=== PATIENT | male | born 1990 | race African-American/Black ===

== ENCOUNTER 2018-05-11 08:13 | Day surgery (SDC) | payer OTHER ==
[2018-05-08 11:42] VITALS: BMI 23.6
[2018-05-11] MEDS ORDERED: PROPOFOL 20 ML ONE ×2 (09:45)
[2018-05-11] MEDS ORDERED: MIDAZOLAM HCL 2 MG/2 ML SINGLE DOSE VIAL ONE ×2 (09:45)
[2018-05-11] MEDS ORDERED: BUPIVACAINE HCL/PF 0.5% (5MG/ML) 10 ML VIAL ONE (09:55)
[2018-05-11] MEDS ORDERED: DEXAMETHASONE SOD PHOSPHATE 4 MG/1 ML VIAL ONE (10:01)
[2018-05-11] MEDS ORDERED: ceFAZolin SODIUM 1 GM VIAL ONE (10:01)
[2018-05-11] MEDS ORDERED: ceFAZolin SODIUM 1 GM VIAL IVPB ONE (10:02)
[2018-05-11] MEDS ORDERED: BUPIVACAINE HCL/PF (5 MG/ML) 30 ML VIAL IJ ONE (10:25)
[2018-05-11] MEDS ORDERED: LIDOCAINE HCL/PF 2% SDV 5ML VIAL ONE (10:30)
[2018-05-11] MEDS ORDERED: IBUPROFEN 800 MG/8 ML IJ IVPB PRN (10:51)
[2018-05-11] MEDS ORDERED: ONDANSETRON 4 MG/2 ML VIAL IVPUSH PRN (10:51)
[2018-05-11] MEDS ORDERED: oxyCODONE HCL 5 MG TABLET PO PRN (10:51)
[2018-05-11] MEDS ORDERED: LACTATED RINGERS SOLUTION 1,000 ML IV SCH (11:00)
--- NOTE | 2018-05-11 11:28 | OP ---
Operative Note - Note: Operative Date: 05/11/18 Pre-Operative Diagnosis: right hemiscrotal mass Operation: Excision of Right Hemiscrotal Neoplasm Post-Operative Diagnosis: Same as Pre-op Surgeon: Mikhail Riley Anesthesia: General
[2018-05-11 13:15] VITALS: PULSE 54
[2018-05-11 16:09] VITALS: BP 122/66; TEMP 97.5
--- NOTE | 2018-05-11 22:02 | OP ---
DATE OF OPERATION: 05/11/2018 PREOPERATIVE DIAGNOSIS: Mass of right hemiscrotum. POSTOPERATIVE DIAGNOSIS: Mass of right hemiscrotum. PROCEDURE: Excision of right hemiscrotal neoplasm. ATTENDING: Mikhail Coles MD ANESTHESIA: General. DESCRIPTION OF OPERATION: Patient was brought in the operating room. 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 This neoplasm has grown over the last few months. The patient is interested in having this mass excised. The patient signs an informed consent with the risk of requiring an orchiectomy. The patient was brought in the operating room, placed in supine position on the operating room table. The patient was given anesthesia and preoperative antibiotics. An incision over the right hemiscrotum is made. The scrotal contents are brought exteriorly. The right testis with the vas deferens is identified. The spermatic cord is from the anterior lateral mass in the right hemiscrotum. At this point, sharp and blunt dissection is utilized, and the base of the mass is found. Clamps are placed on the base, and the mass is excised and sent for pathologic evaluation. At this point, a suture ligature is placed at the base of the mass and tied without complications. Excellent hemostasis is achieved. A 2-layer scrotal closure is performed. No complications are noted. The disposition of the patient is to the recovery room. Shannon [id number]
== END 2018-05-11 13:10 | disposition home or self-care (01) ==
LOC: JASU-SURG 08:13
PROVIDERS: ATTEND Urology
PROC: 0VBF0ZZ Excision of Right Spermatic Cord, Open Approach (ICD-10-PCS; principal; 2018-05-11 09:00)
DX: D40.8 Neoplasm of uncertain behavior of other specified male genital organs (principal)
CPT/HCPCS: 94760

== ENCOUNTER 2020-08-29 20:29 | Emergency (ER) | payer OTHER ==
[2020-08-29 20:34] VITALS: BP 122/71; PULSE 88; TEMP 97.7; BMI 21.1
--- OUTSIDE RECORDS SUMMARY | 2020-08-29 20:52 | XMS ---
:1990 Author Organization [facility] Care Team Providers Name Role Phone Deisi Edmond MD, MPH Unavailable Unavailable Deisi Edmond MD, MPH Unavailable Unavailable Deisi Edmond MD, MPH Unavailable Unavailable Deisi Edmond MD, MPH Unavailable Unavailable Deisi Edmond MD, MPH Unavailable Unavailable Choi, Nina Unavailable Unavailable Choi, Nina Unavailable Unavailable Choi, Nina Unavailable Unavailable Choi, Nina Unavailable Unavailable Choi, Nina Unavailable Unavailable Choi, Nina Unavailable Unavailable Choi, Nina Unavailable Unavailable Choi, Nina Unavailable Unavailable Choi, Nina Unavailable Unavailable Choi, Nina Unavailable Unavailable Routen, Luis Fernando Unavailable Unavailable Routen, Luis Fernando Unavailable Unavailable Leona Talamantes MD Unavailable Unavailable Genesis Talamantes MD Unavailable Unavailable Genesis Talamantes MD Unavailable Unavailable Genesis Talamantes MD Unavailable Unavailable Genesis Talamantes MD Unavailable Unavailable Genesis Talamantes MD Unavailable Unavailable Genesis Talamantes MD Unavailable Unavailable Genesis Talamantes MD Unavailable Unavailable Genesis Talamantes MD Unavailable Unavailable Genesis Talamantes MD Unavailable Unavailable Genesis Talamantes MD Unavailable Unavailable Genesis Talamantes MD Unavailable Unavailable Genesis Talamantes MD Unavailable Unavailable Genesis Talamantes MD Unavailable Unavailable Genesis Talamantes MD Unavailable Unavailable Choi Unavailable Unavailable Choi Unavailable Unavailable Choi Unavailable Unavailable Choi Unavailable Unavailable Choi Unavailable Unavailable Choi Unavailable Unavailable Choi Unavailable Unavailable Choi Unavailable Unavailable Choi Unavailable Unavailable Choi Unavailable Unavailable Samuel Escobar MD, MD Unavailable [phone] Samuel Escobar MD, MD Unavailable [phone] [place] Unavailable Unavailable Ringstad Unavailable Unavailable Ringstad Unavailable Unavailable Ringstad Unavailable Unavailable Ringstad Unavailable Unavailable Ring[place] Unavailable Unavailable Ring[place] Unavailable Unavailable [place] Unavailable Unavailable Ring[place] Unavailable Unavailable [place] Unavailable Unavailable [place] Unavailable Unavailable Re-disclosure Warning The records that you are about to access may contain information from federally- assisted alcohol or drug abuse programs. If such information is present, then the following federally mandated warning applies: This information has been disclosed to you from records protected by federal confidentiality rules (42 CFR part 2). The federal rules prohibit you from making any further disclosure of this information unless further disclosure is expressly permitted by the written consent of the person to whom it pertains or as otherwise permitted by 42 CFR part 2. A general authorization for the release of medical or other information is NOT sufficient for this purpose. The Federal rules restrict any use of the information to criminally investigate or prosecute any alcohol or drug abuse patient.The records that you are about to access may contain highly sensitive health information, the redisclosure of which is protected by Article 27-F of the [facility] Public Health law. If you continue you may haveaccess to information: Regarding HIV / AIDS; Provided by facilities licensed or operated by the [facility] Office of Mental Health; or Provided by the [facility] Office for People With Developmental Disabilities. If such information is present, then the following [facility] mandated warning applies: This information has been disclosed to you from confidential records which are protected by state law. State law prohibits you from making any further disclosure of this information without the specific written consent of the person to whom it pertains, or as otherwise permitted by law. Any unauthorized further disclosure in violation of state law may result in a fine or mcc sentence or both. A general authorization for the release of medical or other information is NOT sufficient authorization for further disclosure. Family History Family Member Family Member Family Member Date of Description Data Source(s) Name Gender Status Status Unknown Male Diagnosis 11/14/2017 JESSICA Brunson 12:00:00 AM Altagraciajusto izaguirre EST [place]) Encounters Encounter Providers Location Date Indications Data Source(s ) Outpatient Attender: Nina Perdomo 04/27/2020 [facility] VelezAdmitter: 08:59:00 Medical Ce nter Nina AM EDT VelezReferrer: Nina Choi OutpatientWell Attender: [facility] 04/27/2020 NEXTG EN ([facility] Visit, Sindy [place] 08:59:00 Altagracia Est,18-39years Samuel AM EDT - Medical Shawn LEIJA 04/27/2020 [place]) 08:59:00 AM EDT Attender: [facility] 04/25/2020 NEXTGE N ([facility] Albin [facility] 03:42:00 Altagracia PM EDT - Medical 04/25/2020 [place]) 03:42:00 PM EDT Attender: [facility] 04/19/2020 NEXTGE N ([facility] 04:09:00 Altagracia PM EDT - Medical 04/19/2020 [place]) 04:09:00 PM EDT Attender: [facility] 04/14/2020 NEXTGEN ([facility] 10:33:00 Altagracia AM EDT - Medical 04/14/2020 [place]) 10:33:00 AM EDT Attender: [facility] 07/23/2019 NEXTGEN ([facility] 09:38:00 Altagraciajusto Guillen AM EDT - Medical 07/23/2019 Center) 09:38:00 AM EDT Outpatient Attender: [facility] 07/21/2019 [facility] VelezAdmitter: 09:30:00 Medical Ce nter Nina AM EDT VelezReferrer: Nina Choi OutpatientOFFICE/OUT Attender: [facility] 07/21/2019 N EXTGEN ([facility]ISIT[facility] Peterson ivory MD, MPH AM EDT - Medical 07/21/2019 Center) 09:30:00 AM EDT Medications Medication Brand Start Product Dose Route Administrative Pharmacy [facility] Indications Reaction Description Data Name Date Form Instructions Instructions Source(s) Ibuprofen ibupro .00 ORAL complet take 1 N EXTGEN 400 MG Oral fen 2019 {tbl} ed tablet by (S aint Tablet 400 mg 12:00: oral route Son[facility] ephs ibuprofen tablet 00 AM every 4 - 6 Medical 400 mg EDT hours as Center) tablet needed Wrist Brace arm [facility] brace 2019 ed left wrist ([facility] 12:00: daily for [facility] 00 wrist Medical EDT stability Center) Insurance Providers Payer name Policy type Policy ID Covered Covered democrat's Policy P kenny / Coverage democrat ID relationship to Manuel Inf ormation type manuel [employer] MEDICAID [id number] COMM [employer]AN HMO MEDICAID W [id number] 01 [id number] [facility] W [id number] HEALTHCARE Problems, Conditions, and Diagnoses Code Display Name Description Problem Type Effective Data Dates Source(s) Z71.89 Other specified OTHER SPECIFIED Diagnosis 04/27/2020 Dewayne t counseling COUNSELING 08:59:00 AM [facility] Z28.3 Underimmunization UNDERIMMUNIZATION Diagnosis 04/27/2020 status STATUS 08:59:00 AM [facility] Z28.21 Immunization not IMMUNIZATION NOT Diagnosis 04/27/2020 Sa int carried out because CARRIED OUT BECAUSE 08:59:0 0 AM [facility] of patient refusal OF PATIENT REFUSAL [facility] N43.3 Hydrocele, HYDROCELE, Diagnosis 04/27/2020 [facility] unspecified UNSPECIFIED 08:59:00 AM [facility] Z00.8 Encounter for other ENCOUNTER FOR OTHER Diagnosis 020 [facility] general examination GENERAL EXAMINATION 08:59:0 0 AM [facility] Z68.21 Body mass index (BMI) BODY MASS INDEX Diagnosis 9 [facility] 21.0-21.9, adult (BMI) 21.0-21.9, 09:30:00 AM [facility] ADULT [facility] M25.532 Pain in left wrist PAIN IN LEFT WRIST Diagnosis 9 [facility] 09:30:00 AM [facility] Surgeries/Procedures Procedure Description Date Indications Data Source(s) Well Visit, 04/27/2020 JESSICA ([facility] Est,18-39years 12:00:00 AM EDT - Medica l Center) 04/27/2020 12:00:00 AM EDT OFFICE/OUTPATIENT 07/21/2019 JESSICA ([facility] VISIT, EST 12:00:00 AM EDT - Medical Ce nter) 07/21/2019 12:00:00 AM EDT Social History Code Duration Value Status Description Data Source(s ) Caffeine Use 04/27/2020 coffee completed coffee NEXTGEN ([facility] nt Details 12:00:00 AM EDT [facility]) 04/27/2020 Never smoked completed Never smoked NEXTGEN (S aint 12:00:00 AM EDT tobacco tobacco [facility]) Smoking 04/27/2020 Unknown if completed Unknown if ever NEXTGEN ( [facility] 12:00:00 AM EDT ever smoked smoked [facility]) Vital Signs ID Date Data Source UNK Name Value Range Interpretation Code Description Data Source(s) Oxygen saturation 98 % 98 % NEXTGEN ([facility] in Arterial blood [facility] by Pulse oximetry [place]) Body mass index 22.00 kg/m2 22.00 kg/m2 NEXTGEN ([facility] (BMI) [Ratio] [facility]) Respiratory rate 20 /min 20 /min [facility] ([facility]) Body temperature 36.83 Gretta 36.83 Gretta [facility] ([facility]) Heart rate 64 /min 64 /min [facility] ([facility]) Diastolic blood 63 mm[Hg] 63 mm[Hg] [facility] ( [facility] pressure [facility]) Systolic blood 103 mm[Hg] 103 mm[Hg] [facility] (S aint pressure [facility]) Body weight 67.585 kg 67.585 kg [facility]) Body height 175.26 cm 175.26 cm [facility] ([facility]) Oxygen saturation 99 % 99 % NEXTGEN ([facility] in Arterial blood [facility] by Pulse oximetry Center) Body mass index 21.41 kg/m2 21.41 kg/m2 NEXTGEN ([facility] (BMI) [Ratio] [facility]) Respiratory rate 20 /min 20 /min [facility] ([facility]) Body temperature 36.33 Gretta 36.33 Gretta [facility] ([facility]) Heart rate 65 /min 65 /min [facility] ([facility]) Diastolic blood 69 mm[Hg] 69 mm[Hg] [facility] ( [facility]) Systolic blood 110 mm[Hg] 110 mm[facility]Hg] [facility]S [facility] pressure [facility]) Body weight 65.771 kg 65.771 kg [facility] ([facility]) Body height 175.26 cm 175.26 cm [facility] ([facility]) Patient Treatment Plan of Care Planned Activity Planned Date Details Description Data Source (s) Wrist Brace 07/21/2019 12:00:00 [facility] ([facility]) Ibuprofen 400 MG Oral 07/21/2019 12:00:00 [facility] ([facility])
--- NOTE | 2020-08-29 20:55 | PDOC ---
History of Present Illness - General Chief Complaint: Ear Problem Stated Complaint: RT EAR INFECTION Time Seen by Provider: 08/29/20 20:38 - History of Present Illness Initial Comments: 08/29/20 20:50 29-year-old male no comorbidities presents for right ear pain without systemic symptoms x4 days Past History - Medical History Allergies/Adverse Reactions: Allergies Allergy/AdvReac Type Severity Reaction Status Date / Time No Known Allergies Allergy Verified 08/29/20 20:31 Home Medications: Ambulatory Orders Ibuprofen [Motrin -] 600 mg PO PRN PRN 05/08/18 Ciprofloxacin HCl/Dexameth [Ciprodex Otic Suspension] 4 drop AD BID 5 Days #1 bottle 08/29/20 COPD: No - Psycho-Social/Smoking History Smoking Status: No Smoking History: Current every day smoker Have you smoked in the past 12 months: Yes Number of Cigarettes Smoked Daily: 0 Information on smoking cessation initiated: Yes - Substance Abuse Hx (Audit-C & DAST Scrn) How often the patient has a drink containing alcohol: Never Score: In Men: 4 or > Positive; In Women: 3 or > Positive: 0 Screen Result (Pos requires Nsg. Audit-10AR): Negative In the last yr the pt used illegal drug/Rx for NonMed reason: Yes Score: Yes response is considered Positive: 1 Screen Result (Positive result requires Nsg. DAST-10): Positive Review of Systems - Review of Systems Constitutional: No: Fever HEENTM: Yes: Ear Pain *Physical Exam - Vital Signs Last Vital Signs Temp Pulse Resp BP Pulse Ox 97.7 F 88 16 122/71 100 08/29/20 20:32 08/29/20 20:32 08/29/20 20:32 08/29/20 20:32 08/29/20 20:32 - Physical Exam General Appearance: Yes: Nourished, Appropriately Dressed. No: Apparent Distress HEENT: positive: Symmetrical, Other (Left ear canal and tympanic membrane are normal right ear canal is erythemic with What appears to be purulence. Tympanic membrane is normal) Neck: positive: Supple Respiratory/Chest: negative: Respiratory Distress Musculoskeletal: positive: Normal Inspection Extremity: positive: Normal Inspection Integumentary: positive: Normal Color Neurologic: positive: paintings conservator II-XII NML intact, Fully Oriented Medical Decision Making - Medical Decision Making 08/29/20 20:51 Ciprodex for otitis externa follow-up with ENT Tylenol Motrin for pain I have reviewed the pathophysiology with the patient. They are in agreement with the treatment plan all questions were answered to their satisfaction. Understanding for follow-up without fail was also conveyed to the patient. Again they are in agreement. Discharge - Discharge Information Problems reviewed: Yes Clinical Impression/Diagnosis: Otitis externa Condition: Stable Disposition: HOME - Admission No - Additional Discharge Information Prescriptions: Ciprofloxacin HCl/Dexameth [Ciprodex Otic Suspension] 4 drop AD BID 5 Days #1 bottle - Follow up/Referral Referrals: Tawana Ford MD [Primary Care Provider] - Graeme Andrews MD [Staff Physician] - - Patient Discharge Instructions Additional Instructions: Tylenol and Motrin as directed for pain. Return to the emergency room for worsening symptoms. Please use the antibiotic drops as directed and without fail follow-up with an ENT in 1 to 2 days for further evaluation and treatment options. - Post Discharge Activity
== END 2020-08-29 20:59 | disposition home or self-care (01) ==
LOC: JERFT 20:29
DX: H60.61 Unspecified chronic otitis externa, right ear (principal)
CPT/HCPCS: 99282-25

== ENCOUNTER 2020-09-08 18:44 | Emergency (ER) | payer OTHER ==
[2020-09-08 18:52] VITALS: BP 107/67; PULSE 88; TEMP 99.1; BMI 22.1
[2020-09-08 21:02] LABS: BASO % 0.9 % (0-2.0); EOS % 2.3 % (0-4.5); HEMATOCRIT 39.9 % (35.4-49); LYMPH % 53.3 % (8-40); MCH 30.3 pg (25.7-33.7); MCHC 35.1 g/dl (32.0-35.9); MEAN CELL VOLUME 86.4 fl (80-96); MEAN PLT VOLUME 8.2 fl (7.5-11.1); MONO % 7.3 % (3.8-10.2); NEUT % 36.2 % (42.8-82.8); PLATELET COUNT 264 K/MM3 (134-434); RBC 4.63 M/mm3 (4.00-5.60); RDW 13.4 % (11.9-15.9); WHITE BLOOD COUNT 7.3 K/mm3 (4.0-10.0)
[2020-09-08 21:22] LABS: CHLORIDE 105 mmol/L (98-107); POTASSIUM 4.5 mmol/L (3.5-5.1); SODIUM 138 mmol/L (136-145)
[2020-09-08 21:25] LABS: ALBUMIN 4.4 g/dl (3.4-5.0); CALCIUM 8.8 mg/dL (8.5-10.1)
[2020-09-08 21:26] LABS: ANION GAP 6 MMOL/L (8-16); BLOOD UREA NITROGEN 14.7 mg/dL (7-18); CO2 27 mmol/L (21-32); GLUCOSE,RANDOM 88 mg/dL (74-106)
[2020-09-08 21:29] LABS: CREATININE 1.1 mg/dL (0.55-1.3); SGOT/AST 26 U/L (15-37); SGPT/ALT 22 U/L (13-61)
[2020-09-08 21:30] LABS: TOT PROT 7.5 g/dl (6.4-8.2)
[2020-09-08 21:32] LABS: ALK PHOS 57 U/L (45-117)
[2020-09-08] MEDS ORDERED: IBUPROFEN 600 MG TABLET (FP) PO ONE ×3 (21:58→22:06)
== END 2020-09-08 22:09 | disposition home or self-care (01) ==
LOC: JER 18:44
DX: R07.1 Chest pain on breathing (principal); R07.81 Pleurodynia
CPT/HCPCS: 36415; 71046-TC-FY; 80053; 82550; 82553; 84484; 85025; 93005; 93010; 99285-25; C9803; U0003

== ENCOUNTER 2020-10-07 17:58 | Emergency (ER) | payer OTHER ==
[2020-10-07 18:18] VITALS: BP 105/61; PULSE 86; TEMP 98.2; BMI 21.2
[2020-10-07] MEDS ORDERED: IBUPROFEN 600 MG TABLET (FP) PO ONE (19:12)
== END 2020-10-07 19:16 | disposition home or self-care (01) ==
LOC: JERFT 17:58
DX: H66.91 Otitis media, unspecified, right ear (principal)
CPT/HCPCS: 99283-25

== ENCOUNTER 2021-12-21 10:42 | Emergency (ER) | payer OTHER ==
[2021-12-21 10:58] VITALS: BP 109/71; PULSE 86; BMI 26.2
[2021-12-21 10:59] VITALS: TEMP 98.1
[2021-12-21] MEDS ORDERED: TETRACAINE 0.5% HCL 0.6ML DROPPER.BOTTLE OD ONE (11:19)
[2021-12-21] MEDS ORDERED: FLUORESCEIN NA 1 EA STRIP OD ONE (11:20)
[2021-12-21] MEDS ORDERED: ERYTHROMYCIN 0.5% OPHTHALMIC OINTMENT 3.5 GM TUBE OD ONE (11:45)
== END 2021-12-21 11:58 | disposition home or self-care (01) ==
LOC: JERFT 10:42
DX: S05.01XA Injury of conjunctiva and corneal abrasion without foreign body, right eye, initial encounter (principal)
CPT/HCPCS: 99283-25

== ENCOUNTER 2022-02-10 21:56 | Emergency (ER) | payer OTHER ==
[2022-02-10 22:10] VITALS: BP 97/66; PULSE 117; TEMP 99.3; BMI 24.6
[2022-02-10] MEDS ORDERED: AMOX TR/POT CLAV 875MG/125MG TABLETS (FP) PO ONE (23:08)
[2022-02-10] MEDS ORDERED: AMOX TR/POT CLAV 875MG/125MG TABLETS (FP) ONE (23:13)
== END 2022-02-10 23:35 | disposition home or self-care (01) ==
LOC: JER 21:56
DX: H66.91 Otitis media, unspecified, right ear (principal)
CPT/HCPCS: 99283-25

== ENCOUNTER 2022-03-19 23:12 | Emergency (ER) | payer OTHER ==
[2022-03-19 23:19] VITALS: BP 109/68; PULSE 88; TEMP 97.6; BMI 23.9
[2022-03-20] MEDS ORDERED: TETRACAINE 0.5% HCL 0.6ML DROPPER.BOTTLE OD ONE (00:06)
[2022-03-20] MEDS ORDERED: FLUORESCEIN NA 1 EA STRIP OD ONE (00:07)
[2022-03-20] MEDS ORDERED: TETRACAINE 0.5% OPHTH SOLN 2 ML BOTTLE ONE (00:11)
[2022-03-20] MEDS ORDERED: FLUORESCEIN NA 1 EA STRIP ONE (00:11)
== END 2022-03-20 01:22 | disposition home or self-care (01) ==
LOC: JERFT 23:12 → JER 23:12 → JERFT 03-20 01:22
DX: H10.12 Acute atopic conjunctivitis, left eye (principal)
CPT/HCPCS: 99283-25

== ENCOUNTER 2022-04-15 05:04 | Emergency (ER) | payer OTHER ==
[2022-04-15 05:49] VITALS: BP 123/81; PULSE 90; TEMP 98.3; BMI 24.7
[2022-04-15] MEDS ORDERED: OFLOXACIN 0.3% OTIC SOLUTION 5 ML BOTTLE AD ONE (06:03)
[2022-04-15] MEDS ORDERED: ACETAMINOPHEN 325 MG TABLET (FP) ONE (06:31)
[2022-04-15] MEDS ORDERED: ACETAMINOPHEN 500 MG TABLET (FP) PO ONE (06:31)
== END 2022-04-15 06:55 | disposition home or self-care (01) ==
LOC: JER 05:04
DX: H60.501 Unspecified acute noninfective otitis externa, right ear (principal); H92.01 Otalgia, right ear
CPT/HCPCS: 99283-25

== ENCOUNTER 2022-11-28 20:29 | Emergency (ER) | payer OTHER ==
[2022-11-28 20:53] VITALS: BP 135/85; PULSE 110; RESP 18; TEMP 98.4; BMI 24.9
[2022-11-28] MEDS ORDERED: IBUPROFEN 400 MG TABLET (FP) PO ONE ×2 (21:18→21:21)
[2022-11-28] MEDS ORDERED: PSEUDOEPHEDRINE HCL 30 MG TABLET PO ONE (21:19)
[2022-11-28] MEDS ORDERED: PSEUDOEPHEDRINE HCL 30 MG TABLET ONE (21:21)
== END 2022-11-28 21:25 | disposition home or self-care (01) ==
LOC: FER 20:29
DX: H72.91 Unspecified perforation of tympanic membrane, right ear (principal); R09.81 Nasal congestion
CPT/HCPCS: 99283-25

== ENCOUNTER 2023-01-09 23:27 | Emergency (ER) | payer OTHER ==
[2023-01-09 23:49] VITALS: BP 116/80; PULSE 86; RESP 16; TEMP 98.3; BMI 24.9
[2023-01-09] MEDS ORDERED: IBUPROFEN 400 MG TABLET (FP) PO ONE ×2 (23:54→23:57)
== END 2023-01-10 00:07 | disposition home or self-care (01) ==
LOC: FER 23:27
DX: S16.1XXA Strain of muscle, fascia and tendon at neck level, initial encounter (principal); V49.40XA Driver injured in collision with unspecified motor vehicles in traffic accident, initial encounter
CPT/HCPCS: 99283-25

== ENCOUNTER 2023-04-18 23:06 | Emergency (ER) | payer OTHER ==
[2023-04-18 23:29] VITALS: RESP 16; BMI 24.9
[2023-04-18 23:36] VITALS: BP 118/80; PULSE 77; TEMP 98.7
== END 2023-04-18 23:52 | disposition home or self-care (01) ==
LOC: FER 23:06
DX: H60.501 Unspecified acute noninfective otitis externa, right ear (principal); H92.01 Otalgia, right ear; J02.9 Acute pharyngitis, unspecified
CPT/HCPCS: 99283-25

== ENCOUNTER 2024-01-06 08:25 | Emergency (ER) | payer OTHER ==
[2024-01-06 08:47] VITALS: BP 138/83; PULSE 92; RESP 16; TEMP 98.1; BMI 25.5
== END 2024-01-06 09:41 | disposition home or self-care (01) ==
LOC: FER 08:25
DX: H92.01 Otalgia, right ear (principal)
CPT/HCPCS: 99283-25

== ENCOUNTER 2025-03-15 07:39 | Emergency (ER) | payer OTHER ==
[2025-03-15 07:56] VITALS: BP 136/95; PULSE 81; RESP 20; TEMP 98.4; BMI 29.3
[2025-03-15] MEDS ORDERED: IBUPROFEN 600 MG TABLET (FP) PO ONE (08:14)
[2025-03-15] MEDS: IBUPROFEN 600 MG TABLET (FP) PO ONE (08:15)
== END 2025-03-15 09:15 | disposition home or self-care (01) ==
LOC: JERFT 07:39
DX: M25.532 Pain in left wrist (principal); M79.644 Pain in right finger(s); W21.00XA Struck by hit or thrown ball, unspecified type, initial encounter; Y93.67 Activity, basketball
CPT/HCPCS: 73110-TC-LT-FY; 73110-TC-RT-FY; 73130-TC-LT-FY; 73130-TC-RT-FY; 99284-25